=== PATIENT | female | born 1990 | race Caucasian/White ===

== ENCOUNTER 2019-11-24 21:21 | Observation (INO) | payer SELFPAY ==
[~2019-11-24] VITALS: Ht 162.6 cm; Wt 95.3 kg
[2019-11-24] MEDS ORDERED: FOLIC ACID (23:18)
[2019-11-24] MEDS ORDERED: FERROUS SULFATE (23:18)
[2019-11-24] MEDS ORDERED: PRENATAL VITAMIN (23:18)
== END 2019-11-25 00:25 | disposition home or self-care (01) ==
LOC: 8 EST LDRP 21:21
PROVIDERS: ADMIT Obstetrics & Gynecology; ATTEND Obstetrics & Gynecology
DX: O9A.213 Injury, poisoning and certain other consequences of external causes complicating pregnancy, third trimester (principal); O26.893 Other specified pregnancy related conditions, third trimester; R10.9 Unspecified abdominal pain; Z3A.30 30 weeks gestation of pregnancy; W19.XXXA Unspecified fall, initial encounter; Y93.9 Activity, unspecified; Y92.9 Unspecified place or not applicable; Y99.9 Unspecified external cause status
CPT/HCPCS: 76805; 76818; 99281; G0378